=== PATIENT | female | born 1965 | race Caucasian/White ===

== ENCOUNTER → 2017-09-15 | Outpatient (CLI) | payer BC ==
[~2017-09-15] MED LIST: CETI10TA84 PO; FLUT0.0529 INH; MTR600X PO; POTA1080 PO; PTDOPS OP; VERA120T15 PO
--- NOTE | 2017-09-16 07:42 | MAMMOGRAPHY REPORT ---
BILATERAL DIGITAL SCREENING MAMMOGRAM TOMOSYNTHESIS WITH CAD: 09/15/2017 CLINICAL HISTORY: Routine screening. Patient has no complaints. TECHNIQUE: Breast tomosynthesis in addition to standard 2D mammography was performed. Current study was also evaluated with a Computer Aided Detection (CAD) system. COMPARISON: Comparison is made to exams dated: 09/12/2016 mammogram, 09/06/2015 mammogram, 03/29/2015 ultrasound, 03/29/2015 mammogram, 09/22/2014 ultrasound, and 09/22/2014 mammogram - [facility]. BREAST COMPOSITION: There are scattered areas of fibroglandular density in both breasts. FINDINGS: A linear scar marker overlies the left breast. There are scattered stable benign-appearin g calcifications bilaterally. No suspicious mass, architectural distortion or cluster of suspicious microcalcifications is seen. IMPRESSION: ACR BI-RADS CATEGORY 1: NEGATIVE There is no mammographic evidence of malignancy. A 1 year screening mammogram is recommended. The pa tient will receive written notification of the results. Approximately 10% of breast cancers are not detected with mammography. A negative mammographic report should not delay biopsy if a clinically suggestive mass is present. Ayesha Victoria M.D. ay/:09/15/2017 16:46:06 Paradi Operator: Zehra MORALESR, M, [facility] letter sent: Normal 1/2 BI-RADS Code: ACR BI-RADS Category 1: Negative
== END | disposition home or self-care (01) ==
LOC: C.MAMM 08:41
PROVIDERS: ATTEND Obstetrics & Gynecology
DX: Z12.31 Encounter for screening mammogram for malignant neoplasm of breast (principal)

== ENCOUNTER → 2017-12-30 | Outpatient (CLI) | payer OTHER ==
--- NOTE | 2017-12-30 11:33 | DIAGNOSTIC IMAGING REPORT ---
KUB CLINICAL HISTORY: 52 years-old Female presenting with N20.0,N20.1. TECHNIQUE: Single supine view of the abdomen was obtained. COMPARISON: 10/08/2016. FINDINGS: Nonobstructive bowel gas pattern. No gross pneumoperitoneum. Moderate stool burden. Bilateral nephrolithiasis. Additionally, interval displacement of a 7 mm left renal calculus which is impacted in the distal left ureter. Few phleboliths again noted in a similar distribution in the right pelvis. Osseous structures normal. IMPRESSION: 1. Interval development of 7 mm distal left ureteral calculus. 2. Bilateral nephrolithiasis. Electronically signed by: Alfred Nolan M.D. 12/30/2017 11:32 AM Dictated Date/Time: 12/30/2017 11:29 AM
== END | disposition home or self-care (01) ==
LOC: C.RAD 11:03
PROVIDERS: ATTEND Urology
DX: N20.2 Calculus of kidney with calculus of ureter (principal)